=== PATIENT | male | born 2000 | race Two or more races ===

== ENCOUNTER 2023-09-02 09:25 | Emergency (ER) | payer SELFPAY ==
[~2023-09-02] VITALS: Ht 160 cm; Wt 45.0 kg
[2023-09-02] MEDS: FLUORESCEIN SODIUM 1 MG STRIP OU ONE (10:48)
[2023-09-02] MEDS: PROPARACAINE HCL 0.5% 15 ML OPHTHALMIC SOLUTION OU ONE (10:48)
[2023-09-02] MEDS: PERTUSS(ACELL),DIPH,TET/PF 0.5 ML SYRINGE [ADULT] IM. ONE (10:49)
[2023-09-02 12:05] VITALS: BP 122/71; PULSE 69; RESP 16; TEMP 96.6
== END 2023-09-02 12:25 | disposition home or self-care (01) ==
LOC: EMS 09:26
DX: S05.02XA Injury of conjunctiva and corneal abrasion without foreign body, left eye, initial encounter (principal); S05.92XA Unspecified injury of left eye and orbit, initial encounter; X58.XXXA Exposure to other specified factors, initial encounter; Y93.89 Activity, other specified; Y92.89 Other specified places as the place of occurrence of the external cause; Y99.8 Other external cause status
CPT/HCPCS: 90471; 90715; 99283